=== PATIENT | female | born 1980 | race Two or more races ===

== ENCOUNTER 2020-02-05 13:53 | Emergency (ER) | payer SELFPAY ==
[~2020-02-05] VITALS: Ht 170.2 cm; Wt 65.9 kg
[2020-02-05 14:42] LABS: BILIRUBIN,URINE SMALL (NEG); CLARITY,URINE CLEAR; COLOR,URINE AMBER; NITRITE,URINE NEGATIVE (NEG); PH,URINE 5.5 (<5.0-8.0); PROTEIN,URINE NEGATIVE (NEG-TRACE)
[2020-02-05 14:46] LABS: AMPHETAMINE/METHAMPHETAMINE NEG (NEG); BARBITURATES NEG (NEG); BENZODIAZEPINES NEG (NEG); CANNABINOIDS NEG (NEG); COCAINE NEG (NEG); METHADONE NEG (NEG); OPIATES NEG (NEG); PHENCYCLIDINE NEG (NEG)
[2020-02-05 14:52] LABS: BACTERIA,URINE FEW /HPF (0-FEW); SQUAMOUS EPITHELIAL CELL,UR MOD /LPF; WBC,URINE RARE /HPF (0-4)
[2020-02-05 15:46] LABS: BASO # 0.1 x10^3/uL (0.0-0.2); BASO % 1 % (0-3); EOS # 0.1 x10^3/uL (0.0-0.7); EOS % 1 % (0-3); HEMATOCRIT 37.6 % (36.0-47.0); LYMPH # 1.9 x10^3/uL (1.0-4.8); LYMPH % 33 % (24-48); MEAN CORPUSCULAR HEMOGLOBIN 33 pg (25-35); MEAN CORPUSCULAR HGB CONC 34 g/dL (31-37); MEAN CORPUSCULAR VOLUME 97 fL (79-100); MONO # 0.6 x10^3/uL (0.0-1.1); MONO % 11 % (0-9); NEUT # 3.1 x10^3/uL (1.8-7.7); NEUT % 54 % (31-73); PLATELET COUNT 182 x10^3/uL (140-400); RED BLOOD COUNT 3.89 x10^6/uL (3.50-5.40); RED CELL DISTRIBUTION WIDTH 12.5 % (11.5-14.5); WHITE BLOOD COUNT 5.7 x10^3/uL (4.0-11.0)
[2020-02-05 15:59] LABS: CALCIUM 9.1 mg/dL (8.5-10.1); CREATININE 0.8 mg/dL (0.6-1.0); POTASSIUM 3.5 mmol/L (3.5-5.1)
[2020-02-05 16:03] LABS: SALIC < 2.8 mg/dL (2.8-20.0)
[2020-02-05 16:04] LABS: ACETAMIN < 2 mcg/ml (10-30); ETHANOL < 10 mg/dL (0-10)
[2020-02-05 16:05] LABS: ALBUMIN 3.7 g/dL (3.4-5.0); ALBUMIN/GLOBULIN RATIO 1.1 (1.0-1.7); TOTAL BILIRUBIN 0.5 mg/dL (0.2-1.0)
[2020-02-05 16:20] LABS: U PREG PATIENT NEGATIVE (NEG)
--- NOTE | 2020-02-05 16:59 | RAD ---
EXAM: CT Maxillofacial with IV contrast INDICATION: Reason: L jaw pain. concern for snake inside her / Spl. Instructions: NO CONTRAST PER RAD / History: TECHNIQUE: Multi-detector row CT images were obtained through the maxillofacial region with the use of IV contrast. Post-processing reconstructed images were obtained for interpretation. All CT scans performed at this facility utilize dose optimization techniques as appropriate to the exam, including the following: Automated exposure control and adjustment of the mA and/or KV according to patient size (this includes techniques or standardized protocols for targeted exams where dose is indication/reason for exam). IV CONTRAST: Administered COMPARISON: None FINDINGS: OSSEOUS: No evidence of fracture or bone destruction. VISUALIZED INTRACRANIAL STRUCTURES: Unremarkable. ORBITS: Orbital contents are unremarkable.. SINUSES: Visualized paranasal sinuses and mastoid air cells are clear.. Dental fillings are present in the mandibular molar teeth. SOFT TISSUES: Unremarkable. IMPRESSION: Normal CT maxillofacial with contrast. No evidence of a snake in the facial soft tissues. Electronically signed by: Shayne Gonzalez MD (02/05/2020 4:56 PM) [id number]
--- NOTE | 2020-02-05 17:01 | RAD ---
CT scan of the head without contrast 02/05/2020 Clinical History: Left jaw pain. Delusions. Technique: Unenhanced, contiguous, 5 mm axial sections were obtained through the head. One or more of the following individualized dose reduction techniques were utilized for this study: 1. Automated exposure control. 2. Adjustment of the mA and/or kV according to patient size. 3. Use of iterative reconstruction technique. Findings: The ventricles and sulci are within normal limits in size and configuration. No acute parenchymal abnormality is seen. No extra-axial fluid collection is noted. No skull fracture is seen. Impression: No acute intracranial abnormality is seen. Electronically signed by: Aristeo Dyer MD (02/05/2020 4:58 PM) [id number]
--- NOTE | 2020-02-05 17:04 | EKG ---
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
--- NOTE | 2020-02-05 17:06 | PHYS DOC ---
Past Medical History Past Medical History: Cystic Fibrosis Additional Past Medical Histor: MS,CELLIAC Past Surgical History: Other Additional Past Surgical Histo: THROAT Smoking Status: Current Every Day Smoker Alcohol Use: None General Adult EDM: Chief Complaint: OTHER COMPLAINTS HPI: HPI: Patient is a 39 year old female who presents to the emergency department with complaints of a black snake being stuck in her nose. The patient reports that she is homeless and was sleeping on the ground last night when she saw a black snake crawl into the right side of her nose. She reports that she can feel the snake moving around in her throat now. She denies any dysphagia, headache, vision changes, nausea, vomiting, diarrhea, or cough. She states that she has had intermittent shortness of breath since the snake entered her nose. Patient reports that she is able to visualize the stomach and the back of her throat.. The patient denies any history of schizophrenia, depression, or anxiety. She states that she has high functioning autism, MS, cystic fibrosis, and celiac disease. She currently denies any pain. Review of Systems: Review of Systems: Constitutional: Denies fever or chills. [] Eyes: Denies change in visual acuity. [] HENT: See HPI Respiratory: Denies cough or shortness of breath. [] Cardiovascular: Denies chest pain or edema. [] GI: Denies abdominal pain, nausea, vomiting Musculoskeletal: Denies back pain or joint pain. [] Integument: Denies rash. [] Neurologic: Denies headache Psychiatric: Denies depression or anxiety. [] Heart Score: Risk Factors: Risk Factors: DM, Current or recent (<one month) smoker, HTN, HLP, family history of CAD, obesity. Risk Scores: Score 0 - 3: 2.5% MACE over next 6 weeks - Discharge Home Score 4 - 6: 20.3% MACE over next 6 weeks - Admit for Clinical Observation Score 7 - 10: 72.7% MACE over next 6 weeks - Early Invasive Strategies Allergies: Allergies: Allergies Coded Allergies Type Severity Reaction Last Updated Verified No Known Drug Allergies 02/05/20 No Physical Exam: PE: Constitutional: Well developed, well nourished, appears anxious, non-toxic appearance. [] HENT: Normocephalic, atraumatic, bilateral external ears normal, posterior pharynx normal, oropharynx moist, no oral exudates, nose normal; no visible foreign body in the nose or throat.. [] Eyes: PERRLA, EOMI, conjunctiva normal, no discharge. [] Neck: Normal range of motion, no stridor. [] Cardiovascular:Heart rate regular rhythm, no murmur [] Lungs & Thorax: Bilateral breath sounds clear to auscultation, Respirations even and unlabored, no retractions, no respiratory distress [] Skin: Warm, dry, no erythema, no rash. [] Extremities: No cyanosis, ROM intact, no edema. [] Neurologic: Alert and oriented X 3, no focal deficits noted. [] Psychologic: Affect normal, judgement normal, mood normal. [] Current Patient Data: Labs: Laboratory Tests Test 02/05/20 14:10 02/05/20 15:25 Urine Collection Type Unknown Urine Color Rosa Urine Clarity Clear Urine pH 5.5 (<5.0-8.0) Urine Specific [place] >=1.030 (1.000-1.030) Urine Protein Negative mg/dL (NEG-TRACE) Urine Glucose (UA) Negative mg/dL (NEG) Urine Ketones (Stick) 15 mg/dL (NEG) Urine Blood Large (NEG) Urine Nitrite Negative (NEG) Urine Bilirubin Small (NEG) Urine Urobilinogen Dipstick 1.0 mg/dL (0.2 mg/dL) Urine Leukocyte Esterase Negative (NEG) Urine RBC 6-10 /HPF (0-2) Urine WBC Rare /HPF (0-4) Urine Squamous Epithelial Cells Mod /LPF Urine Bacteria Few /HPF (0-FEW) Urine Mucus Marked /LPF Urine Test Negative (NEG) Urine Opiates Screen Neg (NEG) Urine Methadone Screen Neg (NEG) Urine Barbiturates Neg (NEG) Urine Phencyclidine Screen Neg (NEG) Urine Amphetamine/Methamphetamine Neg (NEG) Urine Benzodiazepines Screen Neg (NEG) Urine Cocaine Screen Neg (NEG) Urine Cannabinoids Screen Neg (NEG) Urine Ethyl Alcohol Neg (NEG) White Blood Count 5.7 x10^3/uL (4.0-11.0) Red Blood Count 3.89 x10^6/uL (3.50-5.40) Hemoglobin 13.0 g/dL (12.0-15.5) Hematocrit 37.6 % (36.0-47.0) Mean Corpuscular Volume 97 fL (79-100) Mean Corpuscular Hemoglobin 33 pg (25-35) Mean Corpuscular Hemoglobin Concent 34 g/dL (31-37) Red Cell Distribution Width 12.5 % (11.5-14.5) Platelet Count 182 x10^3/uL (140-400) Neutrophils (%) (Auto) 54 % (31-73) Lymphocytes (%) (Auto) 33 % (24-48) Monocytes (%) (Auto) 11 % (0-9) H Eosinophils (%) (Auto) 1 % (0-3) Basophils (%) (Auto) 1 % (0-3) Neutrophils # (Auto) 3.1 x10^3/uL (1.8-7.7) Lymphocytes # (Auto) 1.9 x10^3/uL (1.0-4.8) Monocytes # (Auto) 0.6 x10^3/uL (0.0-1.1) Eosinophils # (Auto) 0.1 x10^3/uL (0.0-0.7) Basophils # (Auto) 0.1 x10^3/uL (0.0-0.2) Sodium Level 143 mmol/L (136-145) Potassium Level 3.5 mmol/L (3.5-5.1) Chloride Level 106 mmol/L (98-107) Carbon Dioxide Level 28 mmol/L (21-32) Anion Gap 9 (6-14) Blood Urea Nitrogen 13 mg/dL (7-20) Creatinine 0.8 mg/dL (0.6-1.0) Estimated GFR (Cockcroft-Gault) 79.0 BUN/Creatinine Ratio 16 (6-20) Glucose Level 93 mg/dL (70-99) Calcium Level 9.1 mg/dL (8.5-10.1) Total Bilirubin 0.5 mg/dL (0.2-1.0) Aspartate Amino Transferase (AST) 13 U/L (15-37) L Alanine Aminotransferase (ALT) 14 U/L (14-59) Alkaline Phosphatase 79 U/L (46-116) Troponin I Quantitative < 0.017 ng/mL (0.000-0.055) Total Protein 7.0 g/dL (6.4-8.2) Albumin 3.7 g/dL (3.4-5.0) Albumin/Globulin Ratio 1.1 (1.0-1.7) Salicylates Level < 2.8 mg/dL (2.8-20.0) L Salicylate Last Dose Date Unknown Salicylate Last Dose Time Unknown Acetaminophen Level < 2 mcg/ml (10-30) L Acetaminophen Last Dose Date Unknown Acetaminophen Last Dose Time Unknown Ethyl Alcohol Level < 10 mg/dL (0-10) Laboratory Tests 02/05/20 15:25 Laboratory Tests 02/05/20 15:25 Vital Signs: Vital Signs Date Time Temp Pulse Resp B/P (MAP) Pulse Ox O2 Delivery O2 Flow Rate FiO2 02/05/20 14:21 98.2 65 18 108/55 (72) 97 Room Air 98.2 EKG: EKG: [] Radiology/Procedures: Radiology/Procedures: PROCEDURE: CT HEAD WO CONTRAST CT scan of the head without contrast 02/05/2020 Clinical History: Left jaw pain. Delusions. Technique: Unenhanced, contiguous, 5 mm axial sections were obtained through the head. One or more of the following individualized dose reduction techniques were utilized for this study: 1. Automated exposure control. 2. Adjustment of the mA and/or kV according to patient size. 3. Use of iterative reconstruction technique. Findings: The ventricles and sulci are within normal limits in size and configuration. No acute parenchymal abnormality is seen. No extra-axial fluid collection is noted. No skull fracture is seen. Impression: No acute intracranial abnormality is seen. PROCEDURE: CT MAXILLOFACIAL WO CONTRAST EXAM: CT Maxillofacial with IV contrast INDICATION: Reason: L jaw pain. concern for snake inside her / Spl. Instructions: NO CONTRAST PER RAD / History: TECHNIQUE: Multi-detector row CT images were obtained through the maxillofacial region with the use of IV contrast. Post-processing reconstructed images were obtained for interpretation. All CT scans performed at this facility utilize dose optimization techniques as appropriate to the exam, including the following: Automated exposure control and adjustment of the mA and/or KV according to patient size (this includes techniques or standardized protocols for targeted exams where dose is indication/reason for exam). IV CONTRAST: Administered COMPARISON: None FINDINGS: OSSEOUS: No evidence of fracture or bone destruction. VISUALIZED INTRACRANIAL STRUCTURES: Unremarkable. ORBITS: Orbital contents are unremarkable.. SINUSES: Visualized paranasal sinuses and mastoid air cells are clear.. Dental fillings are present in the mandibular molar teeth. SOFT TISSUES: Unremarkable. IMPRESSION: Normal CT maxillofacial with contrast. No evidence of a snake in the facial soft tissues. Electronically signed by: Shayne Gonzalez MD (02/05/2020 4:56 PM) [id number] [] Course & Med Decision Making: Course & Med Decision Making Pertinent Labs and Imaging studies reviewed. (See chart for details) Isabella with the PAT assessment team came and evaluated the patient. The patient denied any suicidal or homicidal ideations. The patient again reported that she has no psychiatric history and does not needed help. Work-up included labs: CBC is unremarkable; CMP is unremarkable, troponin is less than 0.017; UA reveals a 6-10 red blood cell count, otherwise unremarkable; urine drug screen is negative, salicylate and Tylenol levels are not elevated. Dr. Benavides also evaluated the patient. A CT maxillofacial and a CT head were ordered without contrast, they were unremarkable, there was no evidence of a snake being present in the patient's head or neck. I advised the patient of these findings. I encouraged her to follow-up with her primary care doctor as needed, return to the ER if symptoms worsen. Patient verbalized an understanding of home care, medications, follow-up, and return to ED instructions and was in agreement with the plan of care. [] Teresita Disclaimer: Teresita Disclaimer: This electronic medical record was generated, in whole or in part, using a voice recognition dictation system. Departure Departure Impression: Primary Impression: Feared complaint without diagnosis Disposition: HOME, SELF-CARE Condition: STABLE Referrals: NO PCP (PCP) Patient Instructions: Medical Screening Exam Additional Instructions: There was no snake present in your head or your neck today. Your labs were unremarkable. Follow-up with your primary care doctor as needed, return to the ER if your symptoms worsen. Justicifation of Admission Dx: Justifications for Admission: Justification of Admission Dx: N/A JOSE J LEE MANAGER QUANTITATIVE Feb 05, 2020 17:06
[2020-02-05 17:30] VITALS: BP 118/56
== END 2020-02-05 18:30 | disposition home or self-care (01) ==
LOC: ER 13:53
DX: Z71.1 Person with feared health complaint in whom no diagnosis is made (principal); Z59.0 Homelessness; F17.200 Nicotine dependence, unspecified, uncomplicated
CPT/HCPCS: 36415; 70450; 70486; 80053; 80307; 80329; 81001; 81025; 84484; 85025; 93005; 99285; G0480